=== PATIENT | male | born 1970 | race Caucasian/White ===

== ENCOUNTER 2017-09-30 11:58 | Outpatient (CLI) | payer OTHER ==
[2017-09-30 13:16] LABS: % IRON SATURATION 14 % (20-50); IRON 47 ug/dL (45-182); TOTAL IRON BINDING CAPACITY 343 ug/dL (250-450); TRANSFERRIN 245 mg/dL (180-329)
[2017-10-01 14:11] LABS: HEPATITIS B SURFACE ANTIGEN NON-REACTIVE (NON-REACTIVE); HEPATITIS C ANTIBODY NON-REACTIVE (NON-REACTIVE)
== END 2017-09-30 11:59 | disposition home or self-care (01) ==
LOC: LAB 11:58
PROVIDERS: ATTEND Family Medicine
DX: R74.8 Abnormal levels of other serum enzymes (principal)
CPT/HCPCS: 36415; 82728; 83540; 84466; 86803; 87340

== ENCOUNTER 2019-03-30 08:20 | Outpatient (CLI) | payer OTHER ==
[2019-03-30 08:40] LABS: CALCIUM 9.3 mg/dL (8.5-10.3); CREATININE 0.8 mg/dL (0.6-1.2)
== END 2019-03-30 08:21 | disposition home or self-care (01) ==
LOC: LAB 08:20
PROVIDERS: ATTEND Internal Medicine Cardiovascular Disease
DX: I10 Essential (primary) hypertension (principal)
CPT/HCPCS: 36415; 80048

== ENCOUNTER 2020-07-30 08:00 | Outpatient (CLI) | payer BC ==
[2020-07-30 15:25] LABS: HEMOGLOBIN A1c% 5.4 % (4.27-6.07)
== END 2020-07-30 23:59 | disposition home or self-care (01) ==
LOC: LAB 08:00
PROVIDERS: ATTEND Family Medicine
DX: R73.9 Hyperglycemia, unspecified (principal)
CPT/HCPCS: 36415; 83036

== ENCOUNTER 2020-09-25 11:50 | Outpatient (CLI) | payer BC ==
[2020-09-25 12:36] LABS: ALBUMIN 4.2 g/dL (3.2-5.5); ALBUMIN/GLOBULIN RATIO 1.2 (1.0-2.2); BILIRUBIN,TOTAL 0.4 mg/dL (0.2-1.0); CALCIUM 9.3 mg/dL (8.5-10.3); CREATININE 0.8 mg/dL (0.6-1.2); POTASSIUM 3.6 mmol/L (3.5-5.0); TOTAL PROTEIN 7.7 g/dL (6.7-8.2)
== END 2020-09-25 11:51 | disposition home or self-care (01) ==
LOC: LAB 11:50
PROVIDERS: ATTEND Nurse Practitioner
DX: R74.8 Abnormal levels of other serum enzymes (principal)
CPT/HCPCS: 36415; 80053

== ENCOUNTER 2021-05-11 16:04 | Outpatient (CLI) | payer BC ==
[2021-05-11 21:20] LABS: ESTIMATED AVERAGE GLUCOSE 117 mg/dL (70-100); HEMOGLOBIN A1c% 5.7 % (4.27-6.07)
== END 2021-05-11 16:05 | disposition home or self-care (01) ==
LOC: LAB 16:04
PROVIDERS: ATTEND Family Medicine
DX: R73.09 Other abnormal glucose (principal)
CPT/HCPCS: 36415; 83036

== ENCOUNTER 2022-11-22 09:57 | Inpatient (IN) | payer OTHER ==
[2022-11-22 10:24] LABS: BASOPHILS # (AUTO) 0.1 10^3/uL (0.0-0.1); BASOPHILS % (AUTO) 0.5 %; EOSINOPHILS # (AUTO) 0.2 10^3/uL (0.0-0.7); EOSINOPHILS % (AUTO) 1.2 %; HCT - HEMATOCRIT 29.8 % (42.0-52.0); HGB - HEMOGLOBIN 9.9 g/dL (14.0-18.0); LYMPHOCYTES # (AUTO) 2.4 10^3/uL (1.5-3.5); MEAN CORPUSCULAR HEMOGLOBIN 29.3 pg (27.0-31.0); MEAN CORPUSCULAR HGB CONC 33.2 g/dL (32.0-36.0); MEAN CORPUSCULAR VOLUME 88.2 fL (80.0-94.0); MEAN PLATELET VOLUME 9.4 fL (7.4-11.4); MONOCYTES # (AUTO) 0.8 10^3/uL (0.0-1.0); MONOCYTES % (AUTO) 5.8 %; NEUTROPHILS # (AUTO) 10.6 10^3/uL (1.5-6.6); NEUTROPHILS % (AUTO) 74.9 %; PLT - PLATELET COUNT 267 10^3/uL (130-450); RED BLOOD COUNT 3.38 10^6/uL (4.70-6.10); RED CELL DISTRIBUTION WIDTH 13.2 % (12.0-15.0); WHITE BLOOD COUNT 14.1 x10^3/uL (4.8-10.8)
[2022-11-22] MEDS ORDERED: PANTOPRAZOLE 40 MG VIAL IVP STA (10:26)
--- NOTE | 2022-11-22 10:27 | ED Physician Documentation ---
PD HPI ABD PAIN - Stated complaint Stated Complaint: MALE GI - Chief complaint Chief Complaint: Abd Pain - History obtained from History obtained from: Patient, Family - Additional information Additional information: 52-year-old gentleman with history of mechanical aortic valve replacement on warfarin with goal INR of 2-3. He was 2.9 6 days ago. He does take occasional NSAIDs for aches and pains, he estimates maybe once a week. Drinks about 1 beer a day. Started having melena 2 days ago not associated with abdominal pain. No history of GI bleeding. Does feel weak and dizzy and short of breath with it. No chest pain. PD PAST MEDICAL HISTORY - Present Medications Home Medications: Ambulatory Orders Medication Instructions Recorded Confirmed Sulfamethox/Trimeth 800/160 1 each PO BID #14 tablet 03/21/22 [Bactrim Ds 800/160] - Allergies Allergies/Adverse Reactions: Allergies Allergy/AdvReac Type Severity Reaction Status Date / Time No Known Drug Allergies Allergy Verified 11/22/22 10:04 PD ED PE NORMAL - Vitals Vital signs reviewed: Yes - General General: Alert and oriented X 3, No acute distress - HEENT HEENT: PERRL, EOMI - Neck Neck: Supple, no meningeal sign, No bony TTP - Cardiac Cardiac: RRR (Click with S2 consistent with mechanical valve) - Respiratory Respiratory: No respiratory distress, Clear bilaterally - Abdomen Abdomen: Non tender - Rectal Rectal: Other (Melena from below) - Derm Derm: Normal color, Warm and dry - Extremities Extremities: No edema, No calf tenderness / cord - Neuro Neuro: Alert and oriented X 3, Normal speech Results - Vitals Vitals: Vital Signs - 24 hr 11/22/22 10:01 Temperature 36.6 C Heart Rate 86 Respiratory 18 Rate Blood Pressure 150/67 H O2 Saturation 99 Oxygen O2 Source Room air - Labs Labs: Laboratory Tests 11/22/22 11/22/22 11/22/22 10:15 10:15 10:15 WBC 14.1 H RBC 3.38 L Hgb 9.9 L Hct 29.8 L MCV 88.2 MCH 29.3 MCHC 33.2 RDW 13.2 Plt Count 267 MPV 9.4 Neut # (Auto) 10.6 H Lymph # (Auto) 2.4 [place] # (Auto) 0.8 Eos # (Auto) 0.2 Baso # (Auto) 0.1 Absolute Nucleated RBC 0.00 Nucleated RBC % 0.0 PT 29.8 H INR 2.8 H Sodium 137 Potassium 4.2 Chloride 107 Carbon Dioxide 25 Anion Gap 5.0 L BUN 35 H Creatinine 0.8 Estimated GFR (MDRD) 102 Glucose 124 H Calcium 8.5 Total Bilirubin 0.4 AST 23 ALT 28 Alkaline Phosphatase 48 Total Protein 6.6 L Albumin 3.4 Globulin 3.2 Albumin/Globulin Ratio 1.1 Lipase 36 PD Medical Decision Making - ED course ED course: 52-year-old warm gentleman on warfarin for history of aortic valve replacement, mechanical, presents with melena and GI bleeding of 2 days duration with normal vital signs but hemoglobin of 9.9. No prior values available but states he is without prior history of anemia. He has melena from below clearly on exam. Case discussed with our hospitalist, Dr. Coreas and our surgeon, Dr. Crow with plan for EGD this afternoon. Blood is ready but not required at this juncture and he is administered Protonix IV. Departure - Departure Disposition: [facility] DC/Xfjuan Clinical Impression: Upper GI bleed, Adequate anticoagulation on anticoagulant therapy, Aortic valve replaced Condition: Serious
[2022-11-22 10:29] LABS: INR 2.8 (0.8-1.2); PT - PROTHROMBIN TIME 29.8 secs (9.9-12.6)
[2022-11-22 10:35] LABS: ALBUMIN 3.4 g/dL (3.2-5.5); ALBUMIN/GLOBULIN RATIO 1.1 (1.0-2.2); BILIRUBIN,TOTAL 0.4 mg/dL (0.2-1.0); CALCIUM 8.5 mg/dL (8.5-10.3); CREATININE 0.8 mg/dL (0.6-1.2); POTASSIUM 4.2 mmol/L (3.5-5.0); TOTAL PROTEIN 6.6 g/dL (6.7-8.2)
[2022-11-22] MEDS ORDERED: ONDANSETRON 4 MG/2 ML VIAL IVP PRN (11:28)
[2022-11-22] MEDS ORDERED: SODIUM CHLORIDE FLUSH 0.9% 10 ML SYRINGE IVP PRN (11:28)
--- NOTE | 2022-11-22 11:34 | CONSULTATION NOTE ---
Referring Provider Consult Date: 11/22/22 Chief Complaint - Chief Complaint Chief Complaint: dark bms x 36 hours History of Present Illness - Admitted From Admitted From:: ED - History Obtained From Records Reviewed: yes History obtained from: pt and MD Exam Limitations: none - History of Present Illness HPI Comment/Other: history of mechanical valve and on coumadin. rare nsaid use. dark/ black bms x 36 hours. last dark bm this am. denies heart problem otherwise. good exercise tolerance. negative cologuard 2 months ago. Meds/Allgy - Home Medications Home Medications: Ambulatory Orders Medication Instructions Recorded Confirmed Sulfamethox/Trimeth 800/160 1 each PO BID #14 tablet 03/21/22 [Bactrim Ds 800/160] - Allergies Allergies/Adverse Reactions: Allergies Allergy/AdvReac Type Severity Reaction Status Date / Time No Known Drug Allergies Allergy Verified 11/22/22 10:04 Review of Systems - Other Findings Other Findings: 10 pt ros as above otherwise unremarkable Exam - Vital Signs Reviewed Vital Signs: Yes Vital Signs: Vital Signs x48h Temp Pulse Resp BP Pulse Ox 11/22/22 10:01 36.6 C 86 18 150/67 H 99 - Physical Exam General Appearance: positive: No acute distress, Alert Eyes Bilateral: positive: PERRL, EOMI, No scleral icterus ENT: positive: No signs of dehydration Neck: positive: No JVD Respiratory: positive: No respiratory distress Cardiovascular: positive: Regular rate & rhythm Abdomen: positive: No distention Neurologic/Psychiatric: positive: Oriented x3 Conclusion/Plan - Problem List (1) Upper GI bleed Conclusion/Plan: plan egd today. parq held and consent obtained - Lab Results Fish Bones: 11/22/22 10:15 11/22/22 10:15
[2022-11-22 11:47] LABS: BASOPHILS # (AUTO) 0.1 10^3/uL (0.0-0.1); BASOPHILS % (AUTO) 0.6 %; EOSINOPHILS # (AUTO) 0.2 10^3/uL (0.0-0.7); EOSINOPHILS % (AUTO) 1.6 %; HCT - HEMATOCRIT 29.3 % (42.0-52.0); HGB - HEMOGLOBIN 9.8 g/dL (14.0-18.0); LYMPHOCYTES # (AUTO) 2.8 10^3/uL (1.5-3.5); LYMPHOCYTES % (AUTO) 20.7 %; MEAN CORPUSCULAR HEMOGLOBIN 29.3 pg (27.0-31.0); MEAN CORPUSCULAR HGB CONC 33.4 g/dL (32.0-36.0); MEAN CORPUSCULAR VOLUME 87.7 fL (80.0-94.0); MEAN PLATELET VOLUME 9.6 fL (7.4-11.4); MONOCYTES # (AUTO) 0.9 10^3/uL (0.0-1.0); MONOCYTES % (AUTO) 6.3 %; NEUTROPHILS # (AUTO) 9.6 10^3/uL (1.5-6.6); NEUTROPHILS % (AUTO) 70.1 %; PLT - PLATELET COUNT 277 10^3/uL (130-450); RED BLOOD COUNT 3.34 10^6/uL (4.70-6.10); RED CELL DISTRIBUTION WIDTH 13.2 % (12.0-15.0); WHITE BLOOD COUNT 13.7 x10^3/uL (4.8-10.8)
--- NOTE | 2022-11-22 12:16 | HISTORY & PHYSICAL EXAMINATION ---
Chief Complaint - Chief Complaint Chief Complaint: Black tarry stool since Tuesday History of Present Illness - Admitted From Admitted From:: ER - History Obtained From Records Reviewed: yes History obtained from: ER MD,Patient and - History of Present Illness HPI Comment/Other: This is a 52-year-old male whose past medical history is significant for mechanical aortic valve on warfarin anticoagulation who presents with black tarry stool over the past 2 to 3 days. He notes he has mild nausea intermittently with this. He has no vomiting. He denies any abdominal pain he has been feeling somewhat lightheaded however.His hemoglobin today was 9.9 with an INR of 2.8. There is no comparative hemoglobin level recently. He was started on IV Protonix in the ER and general surgery has been consulted for upper endoscopy today. Patient does note that he intermittently will take some NSAIDs and does drink several beers per week. History - Past Medical History Cardiovascular: reports: Other (Mechanical aortic valve replacement approximately [address] [facility]) Respiratory: reports: None Neuro: reports: None Endocrine/Autoimmune: reports: None GI: reports: Other (See HPI ) : reports: None HEENT: reports: None Psych: reports: None Musculoskeletal: reports: None Derm: reports: None MRSA Hx?: No - Past Surgical History Cardiovascular: reports: Valve replacement - Family & Social History Living arrangement: At home Living Situation: With spouse/s.o. - Substance History Use: Uses substance without health or social issues: NONE Abuse: Recurrent use of substance despite neg consequences: Alcohol (2-3 beers per week) Meds/Allgy - Home Medications Home Medications: Ambulatory Orders Medication Instructions Recorded Confirmed Sulfamethox/Trimeth 800/160 1 each PO BID #14 tablet 03/21/22 [Bactrim Ds 800/160] - Allergies Allergies/Adverse Reactions: Allergies Allergy/AdvReac Type Severity Reaction Status Date / Time No Known Drug Allergies Allergy Verified 11/22/22 10:04 Review of Systems - Other Findings Other Findings: All systems are reviewed and are negative except for as in HPI. Exam - Vital Signs Reviewed Vital Signs: Yes Vital Signs: Vital Signs x48h Temp Pulse Resp BP Pulse Ox 11/22/22 10:01 36.6 C 86 18 150/67 H 99 - Physical Exam General Appearance: positive: No acute distress, Alert Eyes Bilateral: positive: Normal inspection Neck: positive: Nml inspection Respiratory: positive: Breath sounds nml Cardiovascular: positive: Regular rate & rhythm, No murmur Abdomen: positive: Non-tender Skin: positive: No rash Extremities: positive: No pedal edema Neurologic/Psychiatric: positive: Oriented x3 Conclusion/Plan - Problem List (1) Adequate anticoagulation on anticoagulant therapy Conclusion/Plan: Patient is on warfarin anticoagulation for mechanical aortic valve and is followed at [facility].INR today was 2.8. (2) Upper GI bleed Conclusion/Plan: N.p.o., IV fluids. Appreciate general surgery consultation who will take patient to endoscopy for upper endoscopy to evaluate source of melena. -Placed on IV Protonix 40 mg every 12 hours -Review importance of avoiding NSAIDs, alcohol, acidic food -Appreciate general surgery consultation will take patient to endoscopy suite for EGD (3) Aortic valve replaced Conclusion/Plan: History approximately 2 years ago of mechanical aortic valve replacement at [facility] for aortic stenosis - Lab Results Fish Bones: 11/22/22 11:40 11/22/22 10:15
[2022-11-22] MEDS: SODIUM CHLORIDE 0.9% 1,000 ML IV SCH ×2 (13:08→22:36)
--- NOTE | 2022-11-22 13:28 | ANESTHESIA ---
Pre-Anesthesia VS, & Labs - Diagnosis Upper GI Bleed - Procedure EGD Vital Signs: Temp Pulse Resp BP Pulse Ox O2 Flow Rate 36.6 C 86 18 150/67 H 99 11/22/22 10:01 11/22/22 10:01 11/22/22 10:01 11/22/22 10:01 11/22/22 10:01 Height: 6 ft 2 in Weight (kg): 154.221 kg Body Mass Index: 43.6 BMI Classification: Morbidly Obese - Lab Results Current Lab Results: Laboratory Tests 11/22/22 11:40: WBC 13.7 H, RBC 3.34 L, Hgb 9.8 L, Hct 29.3 L, MCV 87.7, MCH 29.3, MCHC 33.4, RDW 13.2, Plt Count 277, MPV 9.6, Neut # (Auto) 9.6 H, Lymph # (Auto) 2.8, [place] # (Auto) 0.9, Eos # (Auto) 0.2, Baso # (Auto) 0.1, Absolute Nucleated RBC 0.00, Nucleated RBC % 0.0 11/22/22 10:50: Blood Type Recheck A POSITIVE 11/22/22 10:15: APTT 39.2 H 11/22/22 10:15: Sodium 137, Potassium 4.2, Chloride 107, Carbon Dioxide 25, Anion Gap 5.0 L, BUN 35 H, Creatinine 0.8, Estimated GFR (MDRD) 102, Glucose 124 H, Calcium 8.5, Total Bilirubin 0.4, AST 23, ALT 28, Alkaline Phosphatase 48, Total Protein 6.6 L, Albumin 3.4, Globulin 3.2, Albumin/Globulin Ratio 1.1, Lipase 36 11/22/22 10:15: PT 29.8 H, INR 2.8 H 11/22/22 10:15: WBC 14.1 H, RBC 3.38 L, Hgb 9.9 L, Hct 29.8 L, MCV 88.2, MCH 29.3, MCHC 33.2, RDW 13.2, Plt Count 267, MPV 9.4, Neut # (Auto) 10.6 H, Lymph # (Auto) 2.4, [place] # (Auto) 0.8, Eos # (Auto) 0.2, Baso # (Auto) 0.1, Absolute Nucleated RBC 0.00, Nucleated RBC % 0.0 11/22/22 10:15: Blood Type A POSITIVE, Antibody Screen NEGATIVE, Crossmatch IS Only See Detail Fish Bones: 11/22/22 11:40 11/22/22 10:15 Home Medications and Allergies Active Medications Sodium Chloride (Normal Saline 0.9%) 1,000 mls @ 100 mls/hr IV .Q10H FELY Last Admin: 11/22/22 13:08 Dose: 100 mls/hr Ondansetron HCl (Ondansetron 4 Mg/2 Ml Vial) 4 mg IVP Q6HR PRN PRN Reason: Nausea / Vomiting Pantoprazole Sodium (Pantoprazole 40 Mg Vial) 40 mg IVP BID FELY Sodium Chloride (Sodium Chloride Flush 0.9% 10 Ml Syringe) 10 ml IVP PRN PRN PRN Reason: NEEDED PER PROVIDER ORDERS Sodium Chloride (Sodium Chloride Flush 0.9% 10 Ml Syringe) 10 ml IVP 0100,0900,1700 [facility] Allergies/Adverse Reactions: Allergies Allergy/AdvReac Type Severity Reaction Status Date / Time No Known Drug Allergies Allergy Verified 11/22/22 10:04 Anes History & Medical History - Anesthetic History Anesthesia Complications: reports: No previous complications Family history of Anesthesia Complications: Denies Family history of Malignant Hyperthermia: Denies - Medical History Cardiovascular: reports: Hypertension, Other (Mechanical aortic valve replacement approximately 2 years ago at [facility]) Pulmonary: reports: None, CPAP use (Severe JEOVANY, compliant CPAP use) Gastrointestinal: reports: GI bleed, Other (See HPI ) Urinary: reports: None Neuro: reports: None, CVA (hx ischemic CVA ~10yrs ago, slight residual symptoms include speech delay, LLE weakness) Musculoskeletal: reports: None Endocrine/Autoimmune: reports: None (reports hx of dm2, no medication currently) Blood Disorders: reports: Anemia (acute anemia, anticoagulated w coumadin) Skin: reports: None Smoking Status: Former smoker - Surgical History Cardiothoracic: reports: Valve replacement Exam General: Alert, Oriented x3, Cooperative Dental: WNL Mouth Opening: Greater than 4 Fingerbreadths Neck Mobility: Normal Mallampati classification: II Thyromental Distance: 4-6 cm Respiratory: Lungs clear Cardiovascular: Regular rate Mental/Cognitive Status: Alert/Oriented X3 Cognitive Status: Within normal limits Plan Anesthesia Type: MAC Consent for Procedure(s) Verified and Reviewed: Yes Code Status: Attempt Resuscitation ASA classification: 3-Severe systemic disease Is this case an emergency?: Yes
[2022-11-22] MEDS ORDERED: PROPOFOL 500 MG/50 ML 500 MG/50 ML VIAL ONE (14:27)
--- NOTE | 2022-11-22 15:06 | OPERATIVE REPORT ---
Operative Report - General Admit Date: 11/22/22 Procedure Date: 11/22/22 Planned Procedure: egd Pre-Op Diagnosis: ugi bleed with melena Procedure Performed: egd Post Op Diagnosis: few very small gastric erosions. no ulcers, bleeding - Procedure Note Primary Surgeon: shanice rodriguez Anesthesia Technique: General mask, MAC Pathology: none. anticoagulated. biopsies not done Estimated Blood Loss (mL): 0 Drain/Tube Type: Other (none) Indications: recent ugi bleed with melena Findings: as above. no ulcers, esophagitis, active bleeding, no cancer Complications: none - Other Other Information/Narrative: recommend soft diet, observation, continue coumadin. recommend ppi med for 6 to 8 weeks consider h pylori test
[2022-11-22] MEDS ORDERED: LIDOCAINE-MPF 2% 5 ML VIAL ONE (15:39)
[2022-11-22] MEDS: SODIUM CHLORIDE FLUSH 0.9% 10 ML SYRINGE IVP SCH (16:13)
[2022-11-22] MEDS: PANTOPRAZOLE 40 MG TABLET PO SCH (16:56)
[2022-11-22 17:32] LABS: BASOPHILS # (AUTO) 0.1 10^3/uL (0.0-0.1); BASOPHILS % (AUTO) 0.6 %; EOSINOPHILS # (AUTO) 0.3 10^3/uL (0.0-0.7); EOSINOPHILS % (AUTO) 2.9 %; HCT - HEMATOCRIT 27.4 % (42.0-52.0); HGB - HEMOGLOBIN 9.2 g/dL (14.0-18.0); LYMPHOCYTES # (AUTO) 3.2 10^3/uL (1.5-3.5); LYMPHOCYTES % (AUTO) 28.8 %; MEAN CORPUSCULAR HEMOGLOBIN 29.4 pg (27.0-31.0); MEAN CORPUSCULAR HGB CONC 33.6 g/dL (32.0-36.0); MEAN CORPUSCULAR VOLUME 87.5 fL (80.0-94.0); MEAN PLATELET VOLUME 9.8 fL (7.4-11.4); MONOCYTES # (AUTO) 0.8 10^3/uL (0.0-1.0); MONOCYTES % (AUTO) 7.2 %; NEUTROPHILS # (AUTO) 6.6 10^3/uL (1.5-6.6); PLT - PLATELET COUNT 255 10^3/uL (130-450); RED BLOOD COUNT 3.13 10^6/uL (4.70-6.10); RED CELL DISTRIBUTION WIDTH 13.3 % (12.0-15.0); WHITE BLOOD COUNT 11.1 x10^3/uL (4.8-10.8)
[2022-11-22] MEDS ORDERED: PANTOPRAZOLE 40 MG VIAL IVP SCH (21:00)
[2022-11-22 23:31] LABS: BASOPHILS # (AUTO) 0.1 10^3/uL (0.0-0.1); BASOPHILS % (AUTO) 0.7 %; EOSINOPHILS # (AUTO) 0.4 10^3/uL (0.0-0.7); HCT - HEMATOCRIT 25.2 % (42.0-52.0); HGB - HEMOGLOBIN 8.4 g/dL (14.0-18.0); LYMPHOCYTES # (AUTO) 3.5 10^3/uL (1.5-3.5); LYMPHOCYTES % (AUTO) 32.7 %; MEAN CORPUSCULAR HEMOGLOBIN 29.6 pg (27.0-31.0); MEAN CORPUSCULAR HGB CONC 33.3 g/dL (32.0-36.0); MEAN CORPUSCULAR VOLUME 88.7 fL (80.0-94.0); MEAN PLATELET VOLUME 9.7 fL (7.4-11.4); MONOCYTES % (AUTO) 8.9 %; NEUTROPHILS # (AUTO) 5.7 10^3/uL (1.5-6.6); NEUTROPHILS % (AUTO) 53.2 %; NRBC ABSOLUTE COUNT (AUTO) 0.02 x10^3/uL; NUCLEATED RED BLOOD CELLS AUTO 0.2 /100WBC; PLT - PLATELET COUNT 232 10^3/uL (130-450); RED BLOOD COUNT 2.84 10^6/uL (4.70-6.10); RED CELL DISTRIBUTION WIDTH 13.3 % (12.0-15.0); WHITE BLOOD COUNT 10.7 x10^3/uL (4.8-10.8)
[2022-11-23] MEDS: SODIUM CHLORIDE FLUSH 0.9% 10 ML SYRINGE IVP SCH ×3 (01:16→16:34)
[2022-11-23 04:52] LABS: BASOPHILS # (AUTO) 0.1 10^3/uL (0.0-0.1); BASOPHILS % (AUTO) 0.7 %; EOSINOPHILS # (AUTO) 0.4 10^3/uL (0.0-0.7); EOSINOPHILS % (AUTO) 3.5 %; HCT - HEMATOCRIT 24.6 % (42.0-52.0); HGB - HEMOGLOBIN 8.2 g/dL (14.0-18.0); LYMPHOCYTES # (AUTO) 2.3 10^3/uL (1.5-3.5); LYMPHOCYTES % (AUTO) 21.5 %; MEAN CORPUSCULAR HEMOGLOBIN 29.3 pg (27.0-31.0); MEAN CORPUSCULAR HGB CONC 33.3 g/dL (32.0-36.0); MEAN CORPUSCULAR VOLUME 87.9 fL (80.0-94.0); MEAN PLATELET VOLUME 9.7 fL (7.4-11.4); MONOCYTES # (AUTO) 0.8 10^3/uL (0.0-1.0); MONOCYTES % (AUTO) 7.4 %; NEUTROPHILS % (AUTO) 66.3 %; PLT - PLATELET COUNT 227 10^3/uL (130-450); RED CELL DISTRIBUTION WIDTH 13.2 % (12.0-15.0); WHITE BLOOD COUNT 10.6 x10^3/uL (4.8-10.8)
[2022-11-23 05:01] LABS: CREATININE 0.7 mg/dL (0.6-1.2); POTASSIUM 4.1 mmol/L (3.5-5.0)
[2022-11-23 05:03] LABS: INR 2.5 (0.8-1.2); PT - PROTHROMBIN TIME 26.7 secs (9.9-12.6)
[2022-11-23] MEDS: PANTOPRAZOLE 40 MG TABLET PO SCH ×2 (05:35→21:29)
[2022-11-23] MEDS: SODIUM CHLORIDE 0.9% 1,000 ML IV SCH (08:10)
--- NOTE | 2022-11-23 11:54 | PHARMACY PROGRESS NOTE ---
- Best Possible Medication History Admit Date and Time: 11/22/22 1140 Processed by: Pharmacy Medication History completed: Yes Patient Interview: Completed Secondary Source(s): Prescription bottles, Spouse/Significant other, Insurance records As the person ultimately responsible for medication therapy, providers are able to order a medication from an existing home medication list in [facility] via the "Reconcile Routine" prior to Confirmation of that medication by legal support assistant. Such practice is discouraged except when the physician, in their clinical judgment, deems that a medical need exists for a medication without regard to previous use.
--- NOTE | 2022-11-23 11:59 | PROVIDER PROGRESS NOTE ---
Assessment/Plan - Problem List (1) Gastric erosions Assessment/Plan: He underwent EGD yesterday and findings were gastric erosions. No biopsies were done because he was still anticoagulated for his mechanical aortic valve. Today I discussed with him and in the room what may have led to the erosions: He admits to a lot of caffeine use and was recently using Motrin more than normal, also eats hot sauce. Plan: Will treat with Protonix twice daily, not once dailuy I will also add sucralfate oral qid (2) Anemia due to GI blood loss Assessment/Plan: All labs were reviewed. His admission hemoglobin was 9.9. He has been getting IV fluids at 100 cc an hour which could add to hemodilution Today his hemoglobin is 8.2 Plan: We will follow his hemoglobin every 12 hours I will order a transfusion if hemoglobin goes under 7, or if re-bleeding and Hgb <8 Stop IV fluids since he is now eating and drinking (3) Aortic valve replaced Assessment/Plan: All labs were reviewed. His INR is 2.5 today which is still adequate to prevent thrombi and clots in the mechanical valve Plan: I will resume his Coumadin and keep it at the low end of therapeutic at 2-2.5. This plan was discussed with the patient, and was at bedside. Watch for rebleeding (4) Adequate anticoagulation on anticoagulant therapy Assessment/Plan: All labs were reviewed. This patient's INR is in a good range, 2.9 on admission, 2.5 today. The target INR for mechanical valve is 2.5-3.5 Plan: I will resume his Coumadin and keep it at the low end of therapeutic Watch for rebleeding Follow INR daily - Current Meds Current Meds: Current Medications Generic Name Dose Route Start Last Admin Trade Name Freq PRN Reason Stop Dose Admin Sodium Chloride 10 ml 11/22/22 17:00 11/23/22 08:10 Sodium Chloride Flush 0.9% 10 Ml Syringe IVP 10 ml 0100,0900,1700 [facility] Administration - Lab Result Fish Bone Diagrams: 11/23/22 04:21 11/23/22 04:21 - Additional Planning My Orders: My Active Orders 11/23/22 12:00 Warfarin [Coumadin] 10 mg PO [id number] 11/23/22 16:00 Sucralfate [Carafate] 1 gm PO 0700,1100,1600,2200 11/23/22 17:00 HGB - HEMOGLOBIN [HEME] Q12H 11/23/22 21:00 Atorvastatin [Lipitor] 20 mg PO QPM Pantoprazole [Protonix] 40 mg PO BID Tamsulosin [Flomax] 0.4 mg PO QPM 11/24/22 05:00 HGB - HEMOGLOBIN [HEME] Q12H 11/24/22 17:00 HGB - HEMOGLOBIN [HEME] Q12H 11/25/22 05:00 HGB - HEMOGLOBIN [HEME] Q12H 11/25/22 11:54 Warfarin [Coumadin] 7.5 mg PO SUTH 11/25/22 17:00 HGB - HEMOGLOBIN [HEME] Q12H Subjective - Subjective Patient Reports: Fatigue (He took a walk in the hallway and noticed he is much more fatigued than his usual) Objective Vital Signs: Vital Signs - 24 hr 11/22/22 11/22/22 11/22/22 14:34 16:00 21:11 Temperature 36.9 C 36.7 C 36.6 C Heart Rate [ 85 80 85 Brachial] Respiratory 17 18 18 Rate Blood Pressure 136/58 H 130/71 137/67 H [Left Brachial artery] O2 Saturation 100 100 99 11/23/22 11/23/22 11/23/22 00:00 04:50 08:00 Temperature 37.1 C 36.4 C L 36.5 C Heart Rate [ 76 79 80 Brachial] Respiratory 18 18 18 Rate Blood Pressure 122/56 L 142/59 H 138/68 H [Left Brachial artery] O2 Saturation 97 98 100 Oxygen O2 Source Room air I&O (Last 24 Hrs): Intake and Output Totals x24h 11/21/22 11/22/22 11/23/22 23:59 23:59 23:59 Intake Total 6093.222 0702.667 Balance 4158.541 6780.667 General: Alert, Oriented x3, No acute distress, Other (Morbidly obese (BMI 43.7)) HEENT: Atraumatic, EOMI Neck: Supple, No JVD Neuro: Alert, Non Focal Cardiovascular: Regular rate, Other (Loud mechanical valve sound) Respiratory: No respiratory distress, Breath sounds nml Abdomen: Normal bowel sounds, Soft, No tenderness, Other (Obese) Extremities: No clubbing, No edema, No tenderness/swelling - Results Results: Laboratory Results WBC 10.6 x10^3/uL (4.8-10.8) 11/23/22 04:21 RBC 2.80 10^6/uL (4.70-6.10) L 11/23/22 04:21 Hgb 8.2 g/dL (14.0-18.0) L 11/23/22 04:21 Hct 24.6 % (42.0-52.0) L 11/23/22 04:21 MCV 87.9 fL (80.0-94.0) 11/23/22 04:21 MCH 29.3 pg (27.0-31.0) 11/23/22 04:21 MCHC 33.3 g/dL (32.0-36.0) 11/23/22 04:21 RDW 13.2 % (12.0-15.0) 11/23/22 04:21 Plt Count 227 10^3/uL (130-450) 11/23/22 04:21 MPV 9.7 fL (7.4-11.4) 11/23/22 04:21 Neut # (Auto) 7.0 10^3/uL (1.5-6.6) H 11/23/22 04:21 Lymph # (Auto) 2.3 10^3/uL (1.5-3.5) 11/23/22 04:21 [place] # (Auto) 0.8 10^3/uL (0.0-1.0) 11/23/22 04:21 Eos # (Auto) 0.4 10^3/uL (0.0-0.7) 11/23/22 04:21 Baso # (Auto) 0.1 10^3/uL (0.0-0.1) 11/23/22 04:21 Absolute Nucleated RBC 0.00 x10^3/uL 11/23/22 04:21 Nucleated RBC % 0.0 /100WBC 11/23/22 04:21 PT 26.7 secs (9.9-12.6) H 11/23/22 04:21 INR 2.5 (0.8-1.2) H 11/23/22 04:21 APTT 39.2 secs (24.9-33.3) H 11/22/22 10:15 Sodium 139 mmol/L (135-145) 11/23/22 04:21 Potassium 4.1 mmol/L (3.5-5.0) 11/23/22 04:21 Chloride 108 mmol/L (101-111) 11/23/22 04:21 Carbon Dioxide 26 mmol/L (21-32) 11/23/22 04:21 Anion Gap 5.0 (6-13) L 11/23/22 04:21 BUN 25 mg/dL (6-20) H 11/23/22 04:21 Creatinine 0.7 mg/dL (0.6-1.2) 11/23/22 04:21 Estimated GFR (MDRD) 119 (>89) 11/23/22 04:21 Glucose 121 mg/dL (70-100) H 11/23/22 04:21 Calcium 8.0 mg/dL (8.5-10.3) L 11/23/22 04:21 Total Bilirubin 0.4 mg/dL (0.2-1.0) 11/22/22 10:15 AST 23 IU/L (10-42) 11/22/22 10:15 ALT 28 IU/L (10-60) 11/22/22 10:15 Alkaline Phosphatase 48 IU/L (42-121) 11/22/22 10:15 Total Protein 6.6 g/dL (6.7-8.2) L 11/22/22 10:15 Albumin 3.4 g/dL (3.2-5.5) 11/22/22 10:15 Globulin 3.2 g/dL (2.1-4.2) 11/22/22 10:15 Albumin/Globulin Ratio 1.1 (1.0-2.2) 11/22/22 10:15 Lipase 36 U/L (22-51) 11/22/22 10:15 Blood Type A POSITIVE 11/22/22 10:15 Blood Type Recheck A POSITIVE 11/22/22 10:50 Antibody Screen NEGATIVE 11/22/22 10:15 Crossmatch IS Only See Detail 11/22/22 10:15
[2022-11-23] MEDS ORDERED: WARFARIN 5 MG TABLET PO SCH (14:00)
[2022-11-23] MEDS: SUCRALFATE 1 GM/10 ML UDC PO SCH ×2 (16:34→21:29)
[2022-11-23] MEDS: TAMSULOSIN 0.4 MG CAPSULE PO SCH (21:28)
[2022-11-23] MEDS: WARFARIN 5 MG TABLET PO SCH (21:28)
[2022-11-23] MEDS: ATORVASTATIN 10 MG TABLET PO SCH (21:29)
[2022-11-24] MEDS: SODIUM CHLORIDE FLUSH 0.9% 10 ML SYRINGE IVP SCH ×3 (03:24→17:10)
[2022-11-24 04:59] LABS: INR 1.8 (0.8-1.2)
[2022-11-24 05:06] LABS: CALCIUM 7.9 mg/dL (8.5-10.3); CREATININE 0.8 mg/dL (0.6-1.2); POTASSIUM 3.8 mmol/L (3.5-5.0)
[2022-11-24] MEDS: SUCRALFATE 1 GM/10 ML UDC PO SCH ×4 (06:01→21:30)
[2022-11-24 07:20] LABS: H. PYLORIS ANTIGEN STL NEGATIVE (Negative)
[2022-11-24] MEDS: FERROUS GLUCONATE 324 MG TABLET PO SCH (08:25)
[2022-11-24] MEDS: PANTOPRAZOLE 40 MG TABLET PO SCH ×2 (08:25→21:31)
--- NOTE | 2022-11-24 17:07 | PROVIDER PROGRESS NOTE ---
Assessment/Plan - Problem List (1) Gastric erosions Assessment/Plan: He underwent EGD and findings were gastric erosions. No biopsies were done because he was still anticoagulated for his mechanical aortic valve. I discussed with him and in the room on 11/23 what may have led to the erosions: He admits to a lot of caffeine use and was recently using Motrin more than normal, also eats hot sauce. Plan: Cont with Protonix twice daily, not once daily Cont sucralfate oral qid (2) Anemia due to GI blood loss Assessment/Plan: All labs were reviewed. His admission hemoglobin was 9.9. He has been getting IV fluids at 100 cc an hour which could add to hemodilution and yesteray Hgb was 8.2 Today his hemoglobin is 7 and he feels weak and foggy. He had a big black bowel movement this morning Plan: I will order 1U of blood transfused today We will follow his hemoglobin every 12 hours I reviewed the plan with patient and at bedside today 11/24, that I want to see a stable hemoglobin for several blood tests in a row and no orthostasis, and then he will be considered stable for discharge (3) Aortic valve replaced Assessment/Plan: All labs were reviewed. His INR was 2.5 yesterday and is 1.8 today Plan: Continue his Coumadin and keep it at the low end of therapeutic at 2-2.5. This plan was discussed with the patient, and was at bedside on 11/23 Watch for rebleeding (4) Adequate anticoagulation on anticoagulant therapy Assessment/Plan: All labs were reviewed. This patient's INR was 2.9 >> 2.5>> but is 1.8 today. The target INR for mechanical valve is 2.5-3.5 Plan: Continue his resumed Coumadin and keep INR at the low end of therapeutic, at 2- 2.5. Watch for rebleeding Follow INR daily - Current Meds Current Meds: Current Medications Generic Name Dose Route Start Last Admin Trade Name Freq PRN Reason Stop Dose Admin Atorvastatin Calcium 20 mg 11/23/22 21:00 11/23/22 21:29 Atorvastatin 10 Mg Tablet PO 20 mg QPM FELY Administration Ferrous Gluconate 324 mg 11/24/22 08:00 11/24/22 08:25 Ferrous Gluconate 324 Mg Tablet PO 324 mg DAILYWM FELY Administration Pantoprazole Sodium 40 mg 11/23/22 21:00 11/24/22 08:25 Pantoprazole 40 Mg Tablet PO 40 mg BID FELY Administration Sodium Chloride 10 ml 11/22/22 17:00 11/24/22 08:25 Sodium Chloride Flush 0.9% 10 Ml Syringe IVP 10 ml 0100,0900,1700 FELY Administration Sucralfate 1 gm 11/23/22 16:00 11/24/22 14:01 Sucralfate 1 Gm/10 Ml Udc PO 1 gm 0700,1100,1600,2200 FELY Administration Tamsulosin HCl 0.4 mg 11/23/22 21:00 11/23/22 21:28 Tamsulosin 0.4 Mg Capsule PO 0.4 mg QPM FELY Administration Warfarin Sodium 10 mg 11/23/22 21:00 11/23/22 21:28 Warfarin 5 Mg Tablet PO 10 mg MOTUWEFRSA FELY Administration - Lab Result Fish Bone Diagrams: 11/24/22 04:44 11/24/22 04:44 - Additional Planning My Orders: My Active Orders 11/23/22 21:00 Atorvastatin [Lipitor] 20 mg PO QPM Pantoprazole [Protonix] 40 mg PO BID Tamsulosin [Flomax] 0.4 mg PO QPM Warfarin [Coumadin] 10 mg PO MOTUWEFRSA 11/24/22 07:25 Transfuse RBCs Leukoreduced [RC] .ONCE 11/24/22 08:00 Ferrous Gluconate [Fergon] 324 mg PO DAILYWM 11/24/22 17:00 HGB - HEMOGLOBIN [HEME] Q12H 11/25/22 05:00 HGB - HEMOGLOBIN [HEME] Q12H 11/25/22 17:00 HGB - HEMOGLOBIN [HEME] Q12H 11/25/22 21:00 Warfarin [Coumadin] 7.5 mg PO SUTH Subjective - Subjective Patient Reports: Dizzines, Fatigue Objective Vital Signs: Vital Signs - 24 hr 11/23/22 11/24/22 11/24/22 21:00 04:52 08:00 Temperature 36.6 C 37.1 C 36.7 C Heart Rate [ 83 107 H 87 Brachial] Respiratory 20 18 20 Rate Blood Pressure 153/67 H 145/76 H 136/69 H [Left Brachial artery] O2 Saturation 99 98 99 11/24/22 11/24/22 11/24/22 09:12 09:26 09:28 Temperature 36.9 C 36.7 C 36.7 C Heart Rate [ 89 85 85 Brachial] Respiratory 19 18 18 Rate Blood Pressure 145/71 H 138/68 H 138/68 H [Left Brachial artery] O2 Saturation 97 97 97 11/24/22 11/24/22 11:57 16:00 Temperature 36.8 C 36.9 C Heart Rate [ 84 84 Brachial] Respiratory 18 20 Rate Blood Pressure 158/87 H 158/69 H [Left Brachial artery] O2 Saturation 100 97 Oxygen O2 Source Room air I&O (Last 24 Hrs): Intake and Output Totals x24h 11/22/22 11/23/22 11/24/22 23:59 23:59 23:59 Intake Total [phone] 2019 Balance 6594.272 [id number] 2019 General: Alert, Oriented x3 HEENT: Mucous membr. moist/pink, Other (Pale) Neck: Supple Neuro: Alert, Non Focal Cardiovascular: Regular rate Respiratory: No respiratory distress Abdomen: Soft, No tenderness Extremities: No clubbing, No edema, No tenderness/swelling - Results Results: Laboratory Results WBC 10.6 x10^3/uL (4.8-10.8) 11/23/22 04:21 RBC 2.80 10^6/uL (4.70-6.10) L 11/23/22 04:21 Hgb 7.0 g/dL (14.0-18.0) L* 11/24/22 04:44 Hct 24.6 % (42.0-52.0) L 11/23/22 04:21 MCV 87.9 fL (80.0-94.0) 11/23/22 04:21 MCH 29.3 pg (27.0-31.0) 11/23/22 04:21 MCHC 33.3 g/dL (32.0-36.0) 11/23/22 04:21 RDW 13.2 % (12.0-15.0) 11/23/22 04:21 Plt Count 227 10^3/uL (130-450) 11/23/22 04:21 MPV 9.7 fL (7.4-11.4) 11/23/22 04:21 Neut # (Auto) 7.0 10^3/uL (1.5-6.6) H 11/23/22 04:21 Lymph # (Auto) 2.3 10^3/uL (1.5-3.5) 11/23/22 04:21 [place] # (Auto) 0.8 10^3/uL (0.0-1.0) 11/23/22 04:21 Eos # (Auto) 0.4 10^3/uL (0.0-0.7) 11/23/22 04:21 Baso # (Auto) 0.1 10^3/uL (0.0-0.1) 11/23/22 04:21 Absolute Nucleated RBC 0.00 x10^3/uL 11/23/22 04:21 Nucleated RBC % 0.0 /100WBC 11/23/22 04:21 PT 19.0 secs (9.9-12.6) H 11/24/22 04:44 INR 1.8 (0.8-1.2) H 11/24/22 04:44 APTT 39.2 secs (24.9-33.3) H 11/22/22 10:15 Sodium 138 mmol/L (135-145) 11/24/22 04:44 Potassium 3.8 mmol/L (3.5-5.0) 11/24/22 04:44 Chloride 108 mmol/L (101-111) 11/24/22 04:44 Carbon Dioxide 27 mmol/L (21-32) 11/24/22 04:44 Anion Gap 3.0 (6-13) L 11/24/22 04:44 BUN 20 mg/dL (6-20) 11/24/22 04:44 Creatinine 0.8 mg/dL (0.6-1.2) 11/24/22 04:44 Estimated GFR (MDRD) 102 (>89) 11/24/22 04:44 Glucose 127 mg/dL (70-100) H 11/24/22 04:44 Calcium 7.9 mg/dL (8.5-10.3) L 11/24/22 04:44 Total Bilirubin 0.4 mg/dL (0.2-1.0) 11/22/22 10:15 AST 23 IU/L (10-42) 11/22/22 10:15 ALT 28 IU/L (10-60) 11/22/22 10:15 Alkaline Phosphatase 48 IU/L (42-121) 11/22/22 10:15 Total Protein 6.6 g/dL (6.7-8.2) L 11/22/22 10:15 Albumin 3.4 g/dL (3.2-5.5) 11/22/22 10:15 Globulin 3.2 g/dL (2.1-4.2) 11/22/22 10:15 Albumin/Globulin Ratio 1.1 (1.0-2.2) 11/22/22 10:15 Lipase 36 U/L (22-51) 11/22/22 10:15 Stool H. pylori Ag NEGATIVE (Negative) 11/22/22 06:39 Blood Type A POSITIVE 11/22/22 10:15 Blood Type Recheck A POSITIVE 11/22/22 10:50 Antibody Screen NEGATIVE 11/22/22 10:15 Crossmatch IS Only See Detail 11/22/22 10:15
[2022-11-24] MEDS: ATORVASTATIN 10 MG TABLET PO SCH (21:31)
[2022-11-24] MEDS: TAMSULOSIN 0.4 MG CAPSULE PO SCH (21:31)
[2022-11-24] MEDS: WARFARIN 5 MG TABLET PO SCH (21:31)
[2022-11-25 05:24] LABS: INR 1.9 (0.8-1.2); PT - PROTHROMBIN TIME 20.4 secs (9.9-12.6)
[2022-11-25 05:26] LABS: CREATININE 0.8 mg/dL (0.6-1.2); POTASSIUM 3.8 mmol/L (3.5-5.0)
[2022-11-25] MEDS: SODIUM CHLORIDE FLUSH 0.9% 10 ML SYRINGE IVP SCH ×2 (05:53→09:05)
[2022-11-25] MEDS: SUCRALFATE 1 GM/10 ML UDC PO SCH ×2 (05:56→10:57)
[2022-11-25] MEDS: PANTOPRAZOLE 40 MG TABLET PO SCH (09:05)
[2022-11-25] MEDS: FERROUS GLUCONATE 324 MG TABLET PO SCH (09:05)
--- NOTE | 2022-11-25 12:47 | Discharge Plan ---
Discharge Plan Problem Reviewed?: Yes Disposition: Home, Self Care Condition: Stable Prescriptions: Sucralfate [Carafate] 1 gm PO 0700,1100,1600,2200 #28 ea Ferrous Gluconate [Fergon] 324 mg PO DAILY #30 tab Pantoprazole [Protonix] 40 mg PO BID #60 tab Diet: Soft Activity Restrictions: Activity as Tolerated Shower Restrictions: No Driving Restrictions: No Instruction Topics: Ulcer Bleeding Peptic Tx Health Concerns: You were hospitalized to evaluate manage black blood in your stools, and you had an upper endoscopy to look for bleeding and the finding was gastric erosions. Your hemoglobin dropped severely enough that you needed a blood transfusion. The hemoglobin appears to have stabilized, and your BP is stable, so bleeding has probably stopped. You are being discharged home to take 1 month of Protonix treatment for peptic ulcer/erosions disease, and 1 week more of the liquid Sucralfate for the eros ions. You should avoid eating spicy, acidy foods or hard foods that could irritate and scrape the erosions. Also avoid using aspirin or NSAID products (like Motrin), which can lead to ulcers. You must keep taking the Coumadin to keep your mechanical aortic valve from clotting. It is advised that you keep your INR at a low therapeutic range of 2- 2.5, not 2-3. You are being discharged home with a prescription to take oral iron supplements, to help build up your red blood cells. All new prescriptions were electronically sent to [facility] here in [place]. You may resume all your other pre-hospital medications. You should see your primary care provider in the next 1 to 2 weeks for a hospital follow-up visit with lab tests. Plan of Treatment: As above. Care Goals: Improvement in symptoms and stabilization of the goals. Assessment: The patient understands and is agreeable with the plan. Additional Instructions or Follow Up instructions: If you have new or worsening symptoms, call your PCP for advice, or come to the ER. No Smoking: If you smoke, Please STOP! Call for help.
--- NOTE | 2022-11-25 13:08 | DISCHARGE SUMMARY ---
"Discharge Summary Admit Date: 11/22/22 Discharge Date: 11/25/22 Discharging Provider: Dr Petty Mack Primary Care Provider: Dr Emily Ramirez Condition at Discharge: Stable Discharge Disposition: 01 Home, Self Care - HPI History of Present Illness: This is a 52-year-old male whose past medical history is significant for mechanical aortic valve replaced and is on warfarin anticoagulation, who presents with black tarry stool over the past 2 to 3 days. He notes he has mild nausea intermittently with this. He has no vomiting. He denies any abdominal pain, but he has been feeling somewhat lightheaded however. His hemoglobin today was 9.9, with an INR therapeutic at 2.8. There is no comparative hemoglobin level recently. He was started on IV Protonix in the ER and general surgery has been consulted for an upper endoscopy to be done today. Patient does note that he intermittently will take some NSAIDs and does drink several beers per week, but that he drinks about 12 cups of black coffee daily. - CONSULTS | PROCEDURES Consultations: Dr Crow Procedures: EGD - HOSPITAL COURSE Hospital Course: (1) Gastric erosions He underwent EGD and findings were gastric erosions. No biopsies were done because he was left on his Coumadin anticoagulation for his mechanical aortic valve. He admitted to [facility] of black coffee use and was recently using Motrin more than normal, also uses hot sauce. He was put on Protonix 40 mg p.o. twice daily and discharged to take 1 month of this, and was put on Sucralfate oral liquid 4 times daily, and was discharged to take 1 more week of this. Decreasing his coffee intake was advised. (2) Anemia due to GI blood loss His admission hemoglobin was 9.9. Hgb was monitored closley, and it dropped to 8.2 the next day (after some iv fluids), then was 7 the following day, and he f elt weak and foggy. He also had a big black bowel movement that morning. He received 1U of blood transfused then. After that, hemoglobins were 7.8>> 7.5>> 7.9 and he was not orthostatic and therefore was considered stable for discharge. He was sent home with a new prescription for daily oral iron peacock pplement. (3) Hx of Aortic valve replacement He needs to remain on Coumadin for his mecahnical valve. Coumadin was continued here and he was advised to continue it, and monitor INR closely and keep INR at the low end of therapeutic at 2-2.5 for a month. (4) Adequate anticoagulation on anticoagulant therapy This patient's INR was 2.9>> 2.5>> 1.8>> 1.9 The target INR for a mechanical valve is 2.5-3.5, but he was advised to keep INR at the low end of therapeutic, at 2-2.5. - ALLERGIES Allergies/Adverse Reactions: Allergies Allergy/AdvReac Type Severity Reaction Status Date / Time No Known Drug Allergies Allergy Verified 11/22/22 10:04 - MEDICATIONS Home Medications: Ambulatory Orders Medication Instructions Recorded Confirmed Atorvastatin [Lipitor] 20 mg PO QPM 11/23/22 11/23/22 Losartan Potassium 100 mg PO QPM 11/23/22 11/23/22 Metoprolol Tartrate [Lopressor] 25 mg PO BID 11/23/22 11/23/22 Tamsulosin [Flomax] 0.4 mg PO QPM 11/23/22 11/23/22 Warfarin [Coumadin] 7.5 mg PO SUTH 11/23/22 11/23/22 Warfarin [Coumadin] 10 mg PO MOTUWEFRSA 11/23/22 11/23/22 amLODIPine [Norvasc] 5 mg PO DAILY 11/23/22 11/23/22 Ferrous Gluconate [Fergon] 324 mg PO DAILY #30 tab 11/25/22 Pantoprazole [Protonix] 40 mg PO BID #60 tab 11/25/22 Sucralfate [Carafate] 1 gm PO 0700,1100,1600,2200 #28 ea 11/25/22 - PHYSICAL EXAM AT DISCHARGE General Appearance: positive: No acute distress, Alert, Other (Obese (BMI 43)) Eyes Bilateral: positive: Normal inspection, EOMI ENT: positive: ENT inspection nml, No signs of dehydration, Other (Pale) Neck: positive: Nml inspection, No JVD Respiratory: positive: No respiratory distress, Breath sounds nml Cardiovascular: positive: Regular rate & rhythm, Other (Normal mechanical valve clicks) Abdomen: positive: Non-tender, Nml bowel sounds, No distention, Other (Obese) Skin: positive: Warm, Dry, Pallor Extremities: positive: Non-tender, No pedal edema Neurologic/Psychiatric: positive: Oriented x3, Motor nml - LABS Result Diagrams: 11/25/22 12:06 11/25/22 05:05 - FOLLOW UP Follow Up: See PCP in 1-2 weeks. - TIME SPENT Time Spent in Discharge (Minutes): 30"
[2022-11-25 13:45] VITALS: BP 160/72
[2022-11-25] MEDS ORDERED: WARFARIN 2.5 MG TABLET PO SCH (21:00)
== END 2022-11-25 14:03 | disposition home or self-care (01) | DRG 378 ==
LOC: ED 09:57 → MS3 11:40
PROVIDERS: ADMIT Specialist; ATTEND Internal Medicine
PROC: 0DJ08ZZ Inspection of Upper Intestinal Tract, Via Natural or Artificial Opening Endoscopic (ICD-10-PCS; principal; 2022-11-22 14:00)
PROC: 30233N1 Transfusion of Nonautologous Red Blood Cells into Peripheral Vein, Percutaneous Approach (ICD-10-PCS; 2022-11-24)
DX: K25.4 Chronic or unspecified gastric ulcer with hemorrhage (principal); Z68.41 Body mass index [BMI] 40.0-44.9, adult; D50.0 Iron deficiency anemia secondary to blood loss (chronic); Z79.01 Long term (current) use of anticoagulants; Z95.2 Presence of prosthetic heart valve; E66.01 Morbid (severe) obesity due to excess calories
CPT/HCPCS: 36415; 80048; 80053; 82272; 83690; 85018; 85025; 85610; 85730; 86850; 86900; 86901; 86920; 87338; 96374; 99284; 99285; A9270; P9016

== ENCOUNTER 2022-12-06 16:55 | Outpatient (CLI) | payer OTHER ==
[2022-12-06 17:08] LABS: BASOPHILS % (AUTO) 0.6 %; EOSINOPHILS # (AUTO) 0.2 10^3/uL (0.0-0.7); HCT - HEMATOCRIT 28.1 % (42.0-52.0); HGB - HEMOGLOBIN 8.9 g/dL (14.0-18.0); LYMPHOCYTES # (AUTO) 1.7 10^3/uL (1.5-3.5); MEAN CORPUSCULAR HEMOGLOBIN 28.5 pg (27.0-31.0); MEAN CORPUSCULAR HGB CONC 31.7 g/dL (32.0-36.0); MEAN CORPUSCULAR VOLUME 90.1 fL (80.0-94.0); MEAN PLATELET VOLUME 8.7 fL (7.4-11.4); MONOCYTES # (AUTO) 0.6 10^3/uL (0.0-1.0); MONOCYTES % (AUTO) 7.7 %; NEUTROPHILS # (AUTO) 4.7 10^3/uL (1.5-6.6); NEUTROPHILS % (AUTO) 64.3 %; PLT - PLATELET COUNT 362 10^3/uL (130-450); RED BLOOD COUNT 3.12 10^6/uL (4.70-6.10); RED CELL DISTRIBUTION WIDTH 14.5 % (12.0-15.0); WHITE BLOOD COUNT 7.3 x10^3/uL (4.8-10.8)
== END 2022-12-06 16:56 | disposition home or self-care (01) ==
LOC: LAB 16:55
PROVIDERS: ATTEND Family Medicine
DX: D50.0 Iron deficiency anemia secondary to blood loss (chronic) (principal); K92.2 Gastrointestinal hemorrhage, unspecified
CPT/HCPCS: 36415; 85025

== ENCOUNTER 2022-12-27 13:15 | Outpatient (CLI) | payer OTHER ==
[2022-12-27 13:27] LABS: BASOPHILS # (AUTO) 0.1 10^3/uL (0.0-0.1); BASOPHILS % (AUTO) 1.4 %; EOSINOPHILS # (AUTO) 0.3 10^3/uL (0.0-0.7); EOSINOPHILS % (AUTO) 3.5 %; HGB - HEMOGLOBIN 11.2 g/dL (14.0-18.0); LYMPHOCYTES % (AUTO) 27.4 %; MEAN CORPUSCULAR HEMOGLOBIN 26.9 pg (27.0-31.0); MEAN CORPUSCULAR HGB CONC 30.3 g/dL (32.0-36.0); MEAN CORPUSCULAR VOLUME 88.9 fL (80.0-94.0); MEAN PLATELET VOLUME 8.8 fL (7.4-11.4); MONOCYTES # (AUTO) 0.7 10^3/uL (0.0-1.0); MONOCYTES % (AUTO) 9.8 %; NEUTROPHILS # (AUTO) 4.3 10^3/uL (1.5-6.6); NEUTROPHILS % (AUTO) 57.6 %; PLT - PLATELET COUNT 287 10^3/uL (130-450); RED BLOOD COUNT 4.16 10^6/uL (4.70-6.10); RED CELL DISTRIBUTION WIDTH 13.6 % (12.0-15.0); WHITE BLOOD COUNT 7.4 x10^3/uL (4.8-10.8)
== END 2022-12-27 13:16 | disposition home or self-care (01) ==
LOC: LAB 13:15
PROVIDERS: ATTEND Family Medicine
DX: D64.9 Anemia, unspecified (principal)
CPT/HCPCS: 36415; 85025

== ENCOUNTER 2023-01-05 08:25 | Outpatient (CLI) | payer OTHER ==
[2023-01-05 08:53] LABS: BUN - BLOOD UREA NITROGEN 15 mg/dL (6-20); CALCIUM 9.3 mg/dL (8.5-10.3); CARBON DIOXIDE - CO2 27 mmol/L (21-32); CHLORIDE 106 mmol/L (101-111); CHOL/HDL RATIO 3.1 (<5.0); CHOLESTEROL 120 mg/dL; CREATININE 0.9 mg/dL (0.6-1.3); GFR - MDRD 89 (>89); GLUCOSE 101 mg/dL (74-104); HDL CHOLESTEROL 39 mg/dL; LDL CHOLESTEROL,CALCULATED 57 mg/dL; LDL/HDL RATIO 1.5 (<3.6); POTASSIUM 3.9 mmol/L (3.5-4.5); SODIUM 139 mmol/L (135-145); TRIGLYCERIDES 121 mg/dL (48-352); VLDL CHOLESTEROL 24 mg/dL
[2023-01-05 08:57] LABS: BASOPHILS # (AUTO) 0.1 10^3/uL (0.0-0.1); BASOPHILS % (AUTO) 1.1 %; EOSINOPHILS # (AUTO) 0.3 10^3/uL (0.0-0.7); EOSINOPHILS % (AUTO) 4.1 %; HCT - HEMATOCRIT 38.6 % (42.0-52.0); HGB - HEMOGLOBIN 11.6 g/dL (14.0-18.0); LYMPHOCYTES # (AUTO) 1.4 10^3/uL (1.5-3.5); LYMPHOCYTES % (AUTO) 23.4 %; MEAN CORPUSCULAR HEMOGLOBIN 26.7 pg (27.0-31.0); MEAN CORPUSCULAR HGB CONC 30.1 g/dL (32.0-36.0); MEAN CORPUSCULAR VOLUME 88.7 fL (80.0-94.0); MEAN PLATELET VOLUME 9.4 fL (7.4-11.4); MONOCYTES # (AUTO) 0.6 10^3/uL (0.0-1.0); MONOCYTES % (AUTO) 9.2 %; NEUTROPHILS # (AUTO) 3.8 10^3/uL (1.5-6.6); PLT - PLATELET COUNT 283 10^3/uL (130-450); RED BLOOD COUNT 4.35 10^6/uL (4.70-6.10); RED CELL DISTRIBUTION WIDTH 13.7 % (12.0-15.0); WHITE BLOOD COUNT 6.1 x10^3/uL (4.8-10.8)
== END 2023-01-05 08:26 | disposition home or self-care (01) ==
LOC: LAB 08:25
PROVIDERS: ATTEND Internal Medicine Cardiovascular Disease
DX: I10 Essential (primary) hypertension (principal); E78.2 Mixed hyperlipidemia
CPT/HCPCS: 36415; 80048; 80061; 83721; 85025

== ENCOUNTER 2023-03-14 12:25 | Outpatient (CLI) | payer OTHER ==
[2023-03-14 12:39] LABS: BASOPHILS # (AUTO) 0.1 10^3/uL (0.0-0.1); EOSINOPHILS # (AUTO) 0.3 10^3/uL (0.0-0.7); EOSINOPHILS % (AUTO) 3.5 %; HCT - HEMATOCRIT 44.7 % (42.0-52.0); HGB - HEMOGLOBIN 14.2 g/dL (14.0-18.0); LYMPHOCYTES # (AUTO) 2.4 10^3/uL (1.5-3.5); LYMPHOCYTES % (AUTO) 30.6 %; MEAN CORPUSCULAR HEMOGLOBIN 26.7 pg (27.0-31.0); MEAN CORPUSCULAR HGB CONC 31.8 g/dL (32.0-36.0); MEAN CORPUSCULAR VOLUME 84.2 fL (80.0-94.0); MEAN PLATELET VOLUME 9.6 fL (7.4-11.4); MONOCYTES # (AUTO) 0.8 10^3/uL (0.0-1.0); MONOCYTES % (AUTO) 9.5 %; NEUTROPHILS # (AUTO) 4.4 10^3/uL (1.5-6.6); NEUTROPHILS % (AUTO) 55.3 %; PLT - PLATELET COUNT 256 10^3/uL (130-450); RED BLOOD COUNT 5.31 10^6/uL (4.70-6.10); RED CELL DISTRIBUTION WIDTH 14.2 % (12.0-15.0); WHITE BLOOD COUNT 7.9 x10^3/uL (4.8-10.8)
== END 2023-03-14 12:26 | disposition home or self-care (01) ==
LOC: LAB 12:25
PROVIDERS: ATTEND Family Medicine
DX: D64.9 Anemia, unspecified (principal)
CPT/HCPCS: 36415; 85025

== ENCOUNTER 2023-05-03 11:35 | Outpatient (CLI) | payer OTHER ==
[2023-05-03 11:45] LABS: BASOPHILS # (AUTO) 0.1 10^3/uL (0.0-0.1); BASOPHILS % (AUTO) 0.8 %; EOSINOPHILS # (AUTO) 0.4 10^3/uL (0.0-0.7); EOSINOPHILS % (AUTO) 4.4 %; HCT - HEMATOCRIT 44.7 % (42.0-52.0); HGB - HEMOGLOBIN 14.2 g/dL (14.0-18.0); LYMPHOCYTES # (AUTO) 2.2 10^3/uL (1.5-3.5); LYMPHOCYTES % (AUTO) 25.9 %; MEAN CORPUSCULAR HEMOGLOBIN 27.6 pg (27.0-31.0); MEAN CORPUSCULAR HGB CONC 31.8 g/dL (32.0-36.0); MEAN PLATELET VOLUME 9.3 fL (7.4-11.4); MONOCYTES # (AUTO) 0.7 10^3/uL (0.0-1.0); MONOCYTES % (AUTO) 8.7 %; NEUTROPHILS % (AUTO) 60.1 %; PLT - PLATELET COUNT 245 10^3/uL (130-450); RED BLOOD COUNT 5.14 10^6/uL (4.70-6.10); RED CELL DISTRIBUTION WIDTH 15.2 % (12.0-15.0); WHITE BLOOD COUNT 8.4 x10^3/uL (4.8-10.8)
== END 2023-05-03 11:36 | disposition home or self-care (01) ==
LOC: LAB 11:35
PROVIDERS: ATTEND Family Medicine
DX: D64.9 Anemia, unspecified (principal)
CPT/HCPCS: 36415; 85025

== ENCOUNTER 2023-11-10 20:41 | Outpatient (CLI) | payer OTHER | END 2023-11-10 20:42 | disposition home or self-care (01) | LOC: SC 20:41 | PROVIDERS: ATTEND Internal Medicine Pulmonary Disease | DX: G47.33 Obstructive sleep apnea (adult) (pediatric) (principal); R06.82 Tachypnea, not elsewhere classified; G47.61 Periodic limb movement disorder | CPT/HCPCS: 95811 ==

== ENCOUNTER 2023-12-22 13:35 | Outpatient (CLI) | payer OTHER ==
--- NOTE | 2023-12-22 14:04 | Sleep Patient Instructions ---
Sleep Center Visit Summary - Patient Visit Information Reason for Visit: Titration study follow-up - Patient Instructions Additional Instructions: You were here for follow up of the titration study. You will be continued on CPAP therapy with pressure at 6-16 cmH2O. I have completed an order to update your PAP machine. Please call the office to schedule a compliance follow up once you get your new device. You should follow up with sleep care one month after obtaining and using your new CPAP. You may contact us sooner for any questions or concerns. - Clinic Information Contact: [facility] [address] [place] [address] [email or web address] T: [phone]
--- NOTE | 2023-12-22 14:11 | SLEEP CARE CONSULTATION ---
Information from patient questionnaire entered by Zuleika Mccarty. I have reviewed and concur with the information entered by Zuleika Mccarty. This document represents the service I personally performed and the decisions made by , Malina Hurd ARNP. History of Present Illness Service Date and Time: 12/22/2023 1335 Initial [place] Sleepiness Scale score: 5 (08/12/23) Current [place] Sleepiness Scale score: 5 (12/22/23) Additional HPI information: DANIELA PACHECO returns for follow up of a manual CPAP titration study performed on 11/10/23. Previous study done in 2001 showed severe obstructive sleep apnea with AHI 54.4. The patient was informed of the following polysomnography findings: CPAP was initiated at 8 cmH2O and titrated up to CPAP at 14 cmH2O. CPAP at 14 cmH2O appeared to be optimal (AHI of 1.2 per hour on the pressure). There was supine REM sleep on the pressure. Oxygen saturation was normal throughout the night. Lower CPAP settings appeared adequate as well. The patient appeared to have tolerated positive airway pressure therapy fairly well. Tachypnea, mild, during sleep with respiratory rate of 20 breaths per minute (10 breaths per minute while awake), unaffected by pressure change or body position. Minute ventilation was around 9 L/minute during sleep and 10 while awake. He is to continue with CPAP therapy. Patient counseled not drink alcohol less than 4 hours before bedtime as it can increase snoring and apnea. Patient was cautioned about risks of drowsy driving until sleepiness symptoms resolve. Patient denies drowsy driving. Sleep Study - Results Type of Sleep Study: Polysomnography (TITRATION COMPLETED ) Prior sleep studies: Yes Polysomnography/Home Sleep Study results: IMPRESSION: The quality of the study is good. CPAP was initiated at 8 cmH2O and titrated up to CPAP at 14 cmH2O. CPAP at 14 cmH2O appeared to be optimal (AHI of 1.2 per hour on the pressure). There was supine REM sleep on the pressure. Oxygen saturation was normal throughout the night. Lower CPAP settings appeared adequate as well. The patient appeared to have tolerated positive airway pressure therapy fairly well. The patients sleep efficiency was slightly reduced due to a few awakenings during the night. The sleep architecture was normal. There was mild periodic leg movement of sleep not associated with sleep fragmentation. Cardiac rhythm was normal sinus rhythm without significant arrhythmia. No abnormal behavior (parasomnia) observed during the night. CONCLUSIONS and RECOMMENDATIONS: 1. Obstructive sleep apnea-hypopnea (ICD-10 G47.33), severe (AHI was 54.4 in 2002 in [place]), adequately controlled with CPAP at 14 cmH2O. CPAP therapy is, therefore, recommended at the pressure setting. AutoCPAP set between 8 and 14 cmH20 is also appropriate. Mask used was a Noriega-Paykel Brevida nasal pillows size large. With BMI of 46.2 Kg/M2 , weight loss is also recommended. 2. Tachypnea, mild, during sleep with respiratory rate of 20 breaths per minute (10 breaths per minute while awake), unaffected by pressure change or body position. Minute ventilation was around 9 L/minute during sleep and 10 while awake. Further evaluation as appropriate. 3. Periodic leg movement of sleep (ICD G47.61), mild, treatment may be indicated. Clinical correlation advised. Allergies and Home Medications Known drug allergies: No Drug allergies reviewed: Yes Home medication list reviewed: Yes (no changes) Allergy and home medication list: Allergies No Known Drug Allergies Allergy Review of Systems Review of systems same as previous: Yes (NO CHANGE) Physical Exam Vital signs obtained and entered by: ZULEIKA Deluca MA Blood Pressure: 112/73 (RIGHT ARM) Cuff size: long Heart Rate: 64 O2 Saturation: 98 Height: 6 ft 1 in Weight: 350 lb Body Mass Index: 46.1 BMI Classification: Morbidly Obese Impression and Plan 1. Obstructive Sleep Apnea-Hypopnea Syndrome, severe. He returns to office after titration study showing optimal pressure setting of 14 cmH2O. It was noted that 814 cmH2O was also appropriate. The patients pressure will be continued at autoCPAP 6-16 cmH20 as requested by patient. This setting is controlling his apnea well with an average residual AHI of 0.2. Patient's apnea severity and rationale for treatment to reduce apnea, improve sleep quality and reduce cardiovascular and cerebrovascular events was reviewed. I also reviewed the benefit of consistent device use of CPAP for hypertension, cerebrovascular disease (hx of stroke), arrhythmia. He says his machine needs to be updated. The digital readout no longer works on his machine and it is now 5 years old and of reasonable use. Thus, the CPAP will be updated. A DWO prescription will be made. Compliance guidelines for new device and follow up discussed. His is using his machine 100% compliantly with 6 hours 42 minutes nightly average. His residual AHI is at 0.2 with pressure set at 6-16 cmH2O. 2. Tachypnea, mild. During the night of the titration study his respiratory rate was 20 breaths/min which was unaffected by pressure change or body position. Respiratory rate was 10 breaths/min during the time he was awake. Further evaluation of this finding may be appropriate and he should follow-up with his primary doctor. He voiced understanding. 3. Obesity, unspecified. Currently patients BMI is 46.1. Obesity increases the risk of apnea, CPAP pressure requirements and overall health risks especially cardiovascular and diabetes. Thus patient is advised to lose weight. * Continue auto CPAP pressure at 6-16 cmH2O * Update machine * Notify me if snoring with mask or feeling that the pressure is too much or too little * Attempt to lose weight * Call this office if any problems using CPAP * Return for follow up one month after obtaining new CPAP, or sooner if concerns arise Continue with device pressure at (cmH2O): 6-16 Counseling Topics: Weight loss health impact Prescriptions: Auto CPAP Plan: update machine and compliance followup Visit Type: In Office Time Spent with Patient (minutes): 24 Provider Statement: I spent 100% of the Face to Face Visit with the patient with greater than 50% spent counseling the patient and coordination of care.
[2023-12-22 14:16] VITALS: BP 112/73; O2SAT 98
== END 2023-12-22 13:36 | disposition home or self-care (01) ==
LOC: SC 13:35
PROVIDERS: ATTEND Nurse Practitioner Family
DX: G47.33 Obstructive sleep apnea (adult) (pediatric) (principal); R06.82 Tachypnea, not elsewhere classified; E66.01 Morbid (severe) obesity due to excess calories; Z68.42 Body mass index [BMI] 45.0-49.9, adult
CPT/HCPCS: 99212; 99213

== ENCOUNTER 2024-01-12 08:45 | Outpatient (CLI) | payer OTHER ==
[2024-01-12 08:59] LABS: BASOPHILS # (AUTO) 0.1 10^3/uL (0.0-0.1); BASOPHILS % (AUTO) 0.7 %; EOSINOPHILS # (AUTO) 0.2 10^3/uL (0.0-0.7); HCT - HEMATOCRIT 41.1 % (42.0-52.0); HGB - HEMOGLOBIN 13.2 g/dL (14.0-18.0); LYMPHOCYTES # (AUTO) 2.1 10^3/uL (1.5-3.5); MEAN CORPUSCULAR HEMOGLOBIN 28.9 pg (27.0-31.0); MEAN CORPUSCULAR HGB CONC 32.1 g/dL (32.0-36.0); MEAN CORPUSCULAR VOLUME 89.9 fL (80.0-94.0); MEAN PLATELET VOLUME 9.2 fL (7.4-11.4); MONOCYTES # (AUTO) 0.7 10^3/uL (0.0-1.0); MONOCYTES % (AUTO) 9.4 %; NEUTROPHILS # (AUTO) 4.1 10^3/uL (1.5-6.6); NEUTROPHILS % (AUTO) 57.6 %; PLT - PLATELET COUNT 225 10^3/uL (130-450); RED BLOOD COUNT 4.57 10^6/uL (4.70-6.10); RED CELL DISTRIBUTION WIDTH 12.9 % (12.0-15.0); WHITE BLOOD COUNT 7.1 x10^3/uL (4.8-10.8)
[2024-01-12 09:35] LABS: ALBUMIN/GLOBULIN RATIO 1.3 (1.0-2.2); ALKALINE PHOSPHATASE 55 IU/L (42-121); ALT ALANINE AMINOTRANSFERASE 31 IU/L (10-60); AST ASPARTATE AMINOTRANSFERASE 22 IU/L (10-42); BILIRUBIN,TOTAL 0.4 mg/dL (0.2-1.0); BUN - BLOOD UREA NITROGEN 16 mg/dL (6-20); CALCIUM 9.2 mg/dL (8.5-10.3); CARBON DIOXIDE - CO2 29 mmol/L (21-32); CHLORIDE 105 mmol/L (101-111); CHOLESTEROL 118 mg/dL; CK- CREATINE KINASE 181 IU/L (30-223); CREATININE 0.9 mg/dL (0.6-1.3); GFR - MDRD 89 (>89); GLUCOSE 108 mg/dL (74-104); HDL CHOLESTEROL 39 mg/dL; LDL CHOLESTEROL,CALCULATED 60 mg/dL; LDL/HDL RATIO 1.5 (<3.6); POTASSIUM 4.2 mmol/L (3.5-4.5); SODIUM 138 mmol/L (135-145); TOTAL PROTEIN 7.2 g/dL (6.4-8.9); TRIGLYCERIDES 96 mg/dL; VLDL CHOLESTEROL 19 mg/dL
[2024-01-12 09:48] LABS: MICROALBUM/CREATININE RATIO,UR 385.5 ug/mg (<30.0); MICROALBUMIN,URINE 55.9 mg/dL
== END 2024-01-12 08:46 | disposition home or self-care (01) ==
LOC: LAB 08:45
PROVIDERS: ATTEND Family Medicine
DX: I10 Essential (primary) hypertension (principal)
CPT/HCPCS: 36415; 80053; 80061; 82043; 82550; 82570; 83721; 85025